=== PATIENT | male | born 1995 | race Caucasian/White ===

== ENCOUNTER 2021-09-26 23:12 | Emergency (ER) | payer MEDICAID ==
[~2021-09-26] VITALS: Ht 185.4 cm; Wt 75.0 kg
[2021-09-27 00:32] LABS: Urine Amorphous Crystal MOD /hpf (None Seen); Urine Bacteria NONE SEEN /hpf (None Seen); Urine Blood Negative /uL (Negative); Urine Specific Gravity 1.017 (1.001-1.035); Urine WBC 1 /hpf (0 - 3)
[2021-09-27] MEDS ORDERED: SENN1TAB14 PO (06:11)
[2021-09-27] MEDS ORDERED: HYDR5CRE3 PR (06:11)
[2021-09-27 06:22] VITALS: BP 115/68
== END 2021-09-27 06:27 | disposition home or self-care (01) ==
LOC: ER 23:12
DX: K62.5 Hemorrhage of anus and rectum (principal); Z79.899 Other long term (current) drug therapy
CPT/HCPCS: 74176; 81001